=== PATIENT | male | born 1965 | race Caucasian/White ===

== ENCOUNTER 2021-07-07 11:30 | Emergency (ER) | payer MEDICARE ==
[2021-07-07 13:14] LABS: BASOPHIL 0.5 % (0-2); EOSINOPHIL 1.3 % (0-5); HCT 43.5 % (42.0-52.0); HGB 14.6 g/dl (13.2-18.0); LYMPHOCYTE 12.6 % (15-48); MCH 30.5 pg (25.0-31.0); MCHC 33.6 g/dL (32.0-36.0); MCV 90.8 fL (78.0-100.0); MONOCYTE 7.4 % (0-12); MPV 9.5 fL (6.0-9.5); NEUTROPHIL 77.7 % (41-80); NRBC 0; PLT 352 K/uL (150-400); RBC 4.79 M/uL (4.70-6.00); RDW 12.9 % (11.5-14.0); WBC 12.7 K/uL (4.0-10.5)
[2021-07-07 13:29] LABS: ALBUMIN 3.2 g/dL (3.4-5.0); BILIRUBIN - TOTAL 0.3 mg/dL (0.2-1.0); BUN/CREAT RATIO (CALC) 28.3 RATIO; CREATININE 0.92 mg/dL (0.67-1.17); GLOBULIN (CALCULATION) 3.7 g/dL; POTASSIUM 4.4 mmol/L (3.5-5.1); TOTAL PROTEIN 6.9 g/dL (6.4-8.2)
[2021-07-07 14:19] LABS: C-REACTIVE PROTEIN 5.6 mg/dL (<=0.90); URIC ACID 5.1 mg/dL (3.5-7.2)
[2021-07-07] MEDS ORDERED: PREDNISONE 20MG20 MG PO (15:20)
[2021-07-07] MEDS ORDERED: PERCOCET 5-3251 EACH PO (15:20)
== END 2021-07-07 16:42 | disposition home or self-care (01) ==
LOC: FER 11:30
PROVIDERS: Internal Medicine
DX: M79.89 Other specified soft tissue disorders (principal); I10 Essential (primary) hypertension; F17.210 Nicotine dependence, cigarettes, uncomplicated; Z88.1 Allergy status to other antibiotic agents
CPT/HCPCS: 36415; 71045; 73130; 80053; 83880; 84145; 84484; 84550; 85025; 86140; 93005; J1100; J1170